=== PATIENT | male | born 1950 | race Caucasian/White ===

== ENCOUNTER 2021-04-25 16:01 | Inpatient (IN) | payer MEDICARE, OTHER ==
[~2021-04-25] VITALS: Ht 182.9 cm; Wt 102.3 kg
--- NOTE | 2021-04-25 16:13 | NUR ---
PT BIBA. PER EMS PT WAS COVID + 2 WEEKS AGO, TODAY PT STARTED FEELING INCREASE IN SOB AND COUGH. WHEN EMS ARRIVED PT WAS 82% ON RA. PT CURRENTLY ON 15L NRB AT 89-90%. PT ALSO HAD A FEVER OF 102F ORALLY FOR EMS. PT CURRENTLY 100.1F ORALLY. EMS GAVE 100ML OF NS. EMS ALSO REPORTS THAT PT HAS BEEN HYPOTENSIVE 100S/40S. PT CURRENTLY 90/55. PER PT HX OF AFIB AND ASTHMA. PT RESTING IN GURNEY, EKG DONE, MONITORING IN PLACE, RT AT BEDSIDE FOR EVAL, WCTM.
[2021-04-25] MEDS ORDERED: DEXAMETHASONE 4 MG/ML, 5ML ONE (16:38)
[2021-04-25] MEDS ORDERED: PLEASE ENTER ALLERGIES MC SCH (17:00)
[2021-04-25] MEDS ORDERED: SODIUM CHLORIDE FLUSH 10ML SYR IVF ONE (17:00)
[2021-04-25] MEDS ORDERED: ALBUTEROL HFA 90 MCG/SPRAY INH ONE (17:00)
[2021-04-25] MEDS ORDERED: DEXAMETHASONE 4 MG/ML, 1ML IVPush ONE (17:00)
[2021-04-25] MEDS ORDERED: SODIUM CHLORIDE 0.9% 1,000ML IVBOLUS ONE (17:00)
[2021-04-25 17:05] LABS: BASOPHILS % (AUTO) 0 % (0-1); EOSINOPHILS % (AUTO) 0 % (1-7); LYMPHOCYTES % (AUTO) 6 % (22-44); MEAN CORPUSCULAR HEMOGLOBIN 30.5 pg (27.5-34.5); MEAN CORPUSCULAR HGB CONC 33.9 g/dL (33.2-36.2); MEAN PLATELET VOLUME 10.2 fL (7.4-10.4); MONOCYTES % (AUTO) 15 % (2-9); NEUTROPHILS % (AUTO) 79 % (42-75); PLATELET COUNT 207 x10^3/uL (130-400); RED BLOOD COUNT 4.87 x10^6/uL (4.38-5.82); RED CELL DISTRIBUTION WIDTH 14.1 % (9.4-14.8)
[2021-04-25 17:15] LABS: ALBUMIN 2.3 g/dL (3.4-5.0); ANION GAP 9 mmol/L (5-15); CALCIUM 8.7 mg/dL (8.5-10.1); CHLORIDE 98 mmol/L (98-107); CREATININE 1.21 mg/dL (0.7-1.3)
[2021-04-25 17:18] LABS: TROPONIN I < 0.015 ng/mL (0.000-0.045)
[2021-04-25] MEDS ORDERED: AZITHROMYCIN 500 MG in SODIUM CHLORIDE 0.9% 250 ML IV ONE (17:30)
[2021-04-25] MEDS ORDERED: SODIUM CHLORIDE FLUSH 10ML SYR IVF PRN (18:00)
[2021-04-25] MEDS ORDERED: ALBUTEROL HFA 90 MCG/SPRAY INH PRN (19:00)
[2021-04-25] MEDS ORDERED: TRAZODONE 50MG TABLET PO PRN (19:00)
[2021-04-25] MEDS ORDERED: MELATONIN 5 MG TABLET PO PRN (19:00)
[2021-04-25] MEDS ORDERED: POLYETHYLENE GLYCOL 17 GM PACKET PO PRN (19:00)
[2021-04-25] MEDS ORDERED: ONDANSETRON 2MG/ML, 2ML IVPush PRN (19:00)
[2021-04-25] MEDS ORDERED: PHARMACY INSTRUCTION MC SCH (19:00)
--- NOTE | 2021-04-25 19:05 | NUR ---
FIRST CONTACT WITH PATIENT. PATIENT LYING IN STRETCHER ASKING FOR ASSISTANCE TO USE THE RESTROOM. DENIES SOB AND STATES HE WANTS TO GO HOME. PATIENT PROVIDED WITH A URINAL AND ADVISED HE WILL BE ADMITTED WE ARE JUST WAITING ON A BED ASSIGNMENT. PATIENT DENIES NEEDING ASSISTANCE WITH URINAL. VSS. CALL [facility] IN REACH. WILL CONTINUE TO MONITOR.
[2021-04-25 19:16] LABS: ALANINE AMINOTRANSFERASE 34 U/L (12-78); ALBUMIN 2.1 g/dL (3.4-5.0); ANION GAP 9 mmol/L (5-15); CALCIUM 8.5 mg/dL (8.5-10.1); CHLORIDE 101 mmol/L (98-107); CREATININE 1.14 mg/dL (0.7-1.3)
[2021-04-25 19:18] LABS: ALKALINE PHOSPHATASE 76 U/L (45-117); BILIRUBIN,TOTAL 0.6 mg/dL (0.2-1.0)
--- NOTE | 2021-04-25 19:32 | NUR ---
ATTEMPTED TO CALL REPORT X1. WAS TOLD THE NURSE WILL CALL ME BACK WHEN SHE IS READY.
--- NOTE | 2021-04-25 19:52 | NUR ---
April vail in [facility] - 04/25/21 at 1954 by GENEVIEVE REPORT GIVEN TO KERRIE SMITH.
--- NOTE | 2021-04-25 19:54 | NUR ---
REPORT GIVEN TO ISI RN ROOM [id number].
[2021-04-25] MEDS ORDERED: REMDESIVIR 200 MG in SODIUM CHLORIDE 0.9% 250 ML IVPB ONE (20:00)
[2021-04-25] MEDS: ALBUTEROL HFA 90 MCG/SPRAY INH SCH (21:00)
[2021-04-25 21:13] VITALS: BP 113/62
[2021-04-25] MEDS: CHOLECALCIFEROL 5,000u TAB PO SCH (21:17)
[2021-04-25] MEDS: ASCORBIC ACID 500 MG TABLET PO SCH (21:17)
[2021-04-25] MEDS: ZINC SULFATE 220 MG CAPSULE PO SCH (21:17)
[2021-04-25] MEDS ORDERED: LISI40TA9 PO (22:05)
[2021-04-25] MEDS ORDERED: HYDR50TA6 PO (22:05)
[2021-04-25] MEDS ORDERED: APIX5TAB PO (22:07)
[2021-04-25] MEDS: GUAIFENESIN ER 600 MG TABLET PO SCH (22:26)
[2021-04-25] MEDS: INSULIN LISPRO 100 UNITS/ML, PEN SQ-INSULIN SCH (22:27)
[2021-04-25 23:46] VITALS: BP 113/62
[2021-04-26 01:00] VITALS: BP 109/62
[2021-04-26] MEDS ORDERED: HYDR25TA6 PO (04:42)
[2021-04-26] MEDS: ALBUTEROL HFA 90 MCG/SPRAY INH SCH ×4 (06:00→20:13)
[2021-04-26 06:04] LABS: BASOPHILS % (AUTO) 0 % (0-1); EOSINOPHILS % (AUTO) 0 % (1-7); LYMPHOCYTES % (AUTO) 7 % (22-44); MEAN CORPUSCULAR HEMOGLOBIN 30.4 pg (27.5-34.5); MEAN CORPUSCULAR HGB CONC 33.7 g/dL (33.2-36.2); MEAN PLATELET VOLUME 10.2 fL (7.4-10.4); MONOCYTES % (AUTO) 8 % (2-9); NEUTROPHILS % (AUTO) 85 % (42-75); PLATELET COUNT 218 x10^3/uL (130-400); RED BLOOD COUNT 5.03 x10^6/uL (4.38-5.82); RED CELL DISTRIBUTION WIDTH 14.1 % (9.4-14.8)
[2021-04-26 06:08] LABS: ALANINE AMINOTRANSFERASE 34 U/L (12-78); ALBUMIN 2.2 g/dL (3.4-5.0); ANION GAP 9 mmol/L (5-15); CALCIUM 9.1 mg/dL (8.5-10.1); CHLORIDE 103 mmol/L (98-107); CREATININE 1.11 mg/dL (0.7-1.3)
[2021-04-26 06:11] LABS: ALKALINE PHOSPHATASE 81 U/L (45-117); BILIRUBIN,TOTAL 0.5 mg/dL (0.2-1.0); TOTAL PROTEIN 7.5 g/dL (6.4-8.2)
[2021-04-26 07:59] VITALS: BP 110/65
[2021-04-26] MEDS: LISINOPRIL 40 MG TABLET PO SCH (08:02)
[2021-04-26] MEDS: INSULIN LISPRO 100 UNITS/ML, PEN SQ-INSULIN SCH ×4 (08:02→20:41)
[2021-04-26] MEDS: CHOLECALCIFEROL 5,000u TAB PO SCH (08:02)
[2021-04-26] MEDS: SENNA/DOCUSATE TABLET PO SCH (08:03)
[2021-04-26] MEDS: HYDROCHLOROTHIAZIDE 25 MG TABLET PO SCH (08:03)
[2021-04-26] MEDS: GUAIFENESIN ER 600 MG TABLET PO SCH ×2 (08:04→20:13)
[2021-04-26] MEDS: ASCORBIC ACID 500 MG TABLET PO SCH ×2 (08:04→16:05)
[2021-04-26] MEDS: APIXABAN 5 MG TABLET PO SCH ×2 (08:04→20:13)
[2021-04-26] MEDS: DEXAMETHASONE 4 MG/ML, 1ML IVPush SCH (08:05)
[2021-04-26] MEDS: ZINC SULFATE 220 MG CAPSULE PO SCH (08:05)
[2021-04-26] MEDS ORDERED: OMNIPAQUE 350 MG/ML, 100ML BOTTLE ONE (13:04)
[2021-04-26 16:01] VITALS: BP 111/58
[2021-04-26] MEDS: REMDESIVIR 100 MG in SODIUM CHLORIDE 0.9% 250 ML IVPB SCH (20:09)
[2021-04-26 20:21] VITALS: BP 124/65
[2021-04-26] MEDS: CEFTRIAXONE 1,000 MG in DEXTROSE 5% 50 ML IVPB SCH (22:46)
[2021-04-26] MEDS: ACETAMINOPHEN 325 MG TABLET PO PRN (22:50)
[2021-04-26] MEDS: AZITHROMYCIN 500 MG in SODIUM CHLORIDE 0.9% 250 ML IV SCH (23:40)
[2021-04-27 00:45] VITALS: BP 124/70
[2021-04-27 05:15] LABS: MEAN CORPUSCULAR HEMOGLOBIN 29.9 pg (27.5-34.5); MEAN PLATELET VOLUME 10.3 fL (7.4-10.4); PLATELET COUNT 269 x10^3/uL (130-400); RED BLOOD COUNT 4.76 x10^6/uL (4.38-5.82); RED CELL DISTRIBUTION WIDTH 14.3 % (9.4-14.8)
[2021-04-27 05:19] LABS: HCT (SEDRATE) 43.5 % (39.2-51.8)
[2021-04-27 05:37] LABS: ALANINE AMINOTRANSFERASE 36 U/L (12-78); ALBUMIN 2.1 g/dL (3.4-5.0); ANION GAP 6 mmol/L (5-15); CALCIUM 9.4 mg/dL (8.5-10.1); CHLORIDE 107 mmol/L (98-107); CREATININE 1.06 mg/dL (0.7-1.3)
[2021-04-27 05:51] LABS: ALKALINE PHOSPHATASE 73 U/L (45-117); BILIRUBIN,TOTAL 0.4 mg/dL (0.2-1.0); TOTAL PROTEIN 7.1 g/dL (6.4-8.2)
[2021-04-27] MEDS: ALBUTEROL HFA 90 MCG/SPRAY INH SCH ×4 (05:53→20:27)
[2021-04-27 05:58] LABS: BAND#(MANUAL) 9.33 x10^3/uL; BANDS%(MANUAL) 51 % (0-7); LYMPH#(MANUAL) 0.73 x10^3/uL (1-3.4); LYMPHS% (MANUAL) 4 % (22-44); METAMYELOCYTES# (MANUAL) 2.01 x10^3/uL (0-0); METAMYELOCYTES% (MANUAL) 11 % (0-1); MONOS% (MANUAL) 12 % (2-9); SEG#(MANUAL) 4.03 x10^3/uL (1.8-6.8); SEGS% (MANUAL) 22 % (42-75)
[2021-04-27 06:05] LABS: <PLATELET ESTIMATE> ADEQUATE
[2021-04-27 06:06] LABS: LARGE PLATELETS 1+
[2021-04-27 06:07] LABS: <RBC MORPHOLOGY> NORMAL
[2021-04-27] MEDS: INSULIN LISPRO 100 UNITS/ML, PEN SQ-INSULIN SCH ×4 (08:36→21:38)
[2021-04-27] MEDS: DEXAMETHASONE 4 MG/ML, 1ML IVPush SCH (08:36)
[2021-04-27] MEDS: CHOLECALCIFEROL 5,000u TAB PO SCH (08:39)
[2021-04-27] MEDS: LISINOPRIL 40 MG TABLET PO SCH (08:39)
[2021-04-27] MEDS: SENNA/DOCUSATE TABLET PO SCH (08:39)
[2021-04-27] MEDS: ZINC SULFATE 220 MG CAPSULE PO SCH (08:39)
[2021-04-27] MEDS: ASCORBIC ACID 500 MG TABLET PO SCH ×2 (08:39→16:28)
[2021-04-27] MEDS: HYDROCHLOROTHIAZIDE 25 MG TABLET PO SCH (08:39)
[2021-04-27] MEDS: APIXABAN 5 MG TABLET PO SCH ×2 (08:39→21:38)
[2021-04-27] MEDS: GUAIFENESIN ER 600 MG TABLET PO SCH ×2 (08:39→21:38)
[2021-04-27 08:40] VITALS: BP 113/64
[2021-04-27 13:38] VITALS: BP 119/71
[2021-04-27 19:53] VITALS: BP 125/66
[2021-04-27] MEDS: REMDESIVIR 100 MG in SODIUM CHLORIDE 0.9% 250 ML IVPB SCH (20:27)
[2021-04-27] MEDS: ACETAMINOPHEN 325 MG TABLET PO PRN (21:38)
[2021-04-27] MEDS: CEFTRIAXONE 1,000 MG in DEXTROSE 5% 50 ML IVPB SCH (22:50)
[2021-04-27] MEDS: AZITHROMYCIN 500 MG in SODIUM CHLORIDE 0.9% 250 ML IV SCH (23:24)
[2021-04-28 01:41] VITALS: BP 124/75
[2021-04-28 05:35] LABS: MEAN CORPUSCULAR HEMOGLOBIN 29.8 pg (27.5-34.5); MEAN CORPUSCULAR HGB CONC 32.8 g/dL (33.2-36.2); MEAN PLATELET VOLUME 10.6 fL (7.4-10.4); PLATELET COUNT 304 x10^3/uL (130-400)
[2021-04-28 05:41] LABS: CHLORIDE 108 mmol/L (98-107)
[2021-04-28] MEDS: ALBUTEROL HFA 90 MCG/SPRAY INH SCH ×4 (05:50→20:12)
[2021-04-28 05:51] LABS: ALANINE AMINOTRANSFERASE 39 U/L (12-78); ALBUMIN 2.2 g/dL (3.4-5.0); ALKALINE PHOSPHATASE 66 U/L (45-117); ANION GAP 7 mmol/L (5-15); BILIRUBIN,TOTAL 0.2 mg/dL (0.2-1.0); CALCIUM 9.3 mg/dL (8.5-10.1); CREATININE 0.99 mg/dL (0.7-1.3); TOTAL PROTEIN 6.9 g/dL (6.4-8.2)
[2021-04-28 06:00] LABS: BAND#(MANUAL) 8.85 x10^3/uL; BANDS%(MANUAL) 53 % (0-7); LYMPH#(MANUAL) 1.17 x10^3/uL (1-3.4); LYMPHS% (MANUAL) 7 % (22-44); METAMYELOCYTES# (MANUAL) 0.17 x10^3/uL (0-0); METAMYELOCYTES% (MANUAL) 1 % (0-1); MONOS#(MANUAL) 1.34 x10^3/uL (0.3-2.7); MONOS% (MANUAL) 8 % (2-9); SEG#(MANUAL) 5.18 x10^3/uL (1.8-6.8); SEGS% (MANUAL) 31 % (42-75)
[2021-04-28 06:01] LABS: <PLATELET ESTIMATE> ADEQUATE; <RBC MORPHOLOGY> NORMAL; LARGE PLATELETS 1+
[2021-04-28] MEDS: INSULIN LISPRO 100 UNITS/ML, PEN SQ-INSULIN SCH ×4 (07:50→20:23)
[2021-04-28] MEDS: LISINOPRIL 40 MG TABLET PO SCH (07:50)
[2021-04-28] MEDS: HYDROCHLOROTHIAZIDE 25 MG TABLET PO SCH (07:51)
[2021-04-28] MEDS: GUAIFENESIN ER 600 MG TABLET PO SCH ×2 (07:51→20:11)
[2021-04-28] MEDS: SENNA/DOCUSATE TABLET PO SCH (07:51)
[2021-04-28] MEDS: CHOLECALCIFEROL 5,000u TAB PO SCH (07:51)
[2021-04-28] MEDS: ASCORBIC ACID 500 MG TABLET PO SCH ×2 (07:51→16:03)
[2021-04-28] MEDS: DEXAMETHASONE 4 MG/ML, 1ML IVPush SCH (07:51)
[2021-04-28] MEDS: ZINC SULFATE 220 MG CAPSULE PO SCH (07:52)
[2021-04-28] MEDS: APIXABAN 5 MG TABLET PO SCH ×2 (08:05→20:11)
[2021-04-28 08:56] VITALS: BP 117/66
[2021-04-28 12:59] VITALS: BP 124/66
[2021-04-28 19:58] VITALS: BP 127/65
[2021-04-28] MEDS: REMDESIVIR 100 MG in SODIUM CHLORIDE 0.9% 250 ML IVPB SCH (20:11)
[2021-04-28] MEDS: CEFTRIAXONE 1,000 MG in DEXTROSE 5% 50 ML IVPB SCH (22:27)
[2021-04-28] MEDS: ACETAMINOPHEN 325 MG TABLET PO PRN (22:35)
[2021-04-28] MEDS: AZITHROMYCIN 500 MG in SODIUM CHLORIDE 0.9% 250 ML IV SCH (23:23)
[2021-04-29 01:02] VITALS: BP 127/70
[2021-04-29 05:52] LABS: MEAN CORPUSCULAR HEMOGLOBIN 29.9 pg (27.5-34.5); MEAN CORPUSCULAR HGB CONC 33.2 g/dL (33.2-36.2); MEAN PLATELET VOLUME 9.9 fL (7.4-10.4); PLATELET COUNT 294 x10^3/uL (130-400); RED BLOOD COUNT 4.54 x10^6/uL (4.38-5.82); RED CELL DISTRIBUTION WIDTH 14.2 % (9.4-14.8)
[2021-04-29] MEDS: ALBUTEROL HFA 90 MCG/SPRAY INH SCH ×3 (05:58→16:25)
[2021-04-29 06:04] LABS: CHLORIDE 110 mmol/L (98-107)
[2021-04-29 06:25] LABS: ALANINE AMINOTRANSFERASE 46 U/L (12-78); ALBUMIN 2.1 g/dL (3.4-5.0); ALKALINE PHOSPHATASE 62 U/L (45-117); ANION GAP 4 mmol/L (5-15); BILIRUBIN,TOTAL 0.5 mg/dL (0.2-1.0); CALCIUM 9.1 mg/dL (8.5-10.1); CREATININE 0.87 mg/dL (0.7-1.3); TOTAL PROTEIN 6.5 g/dL (6.4-8.2)
[2021-04-29 06:28] LABS: BANDS%(MANUAL) 28 % (0-7); LYMPH#(MANUAL) 0.59 x10^3/uL (1-3.4); LYMPHS% (MANUAL) 5 % (22-44); METAMYELOCYTES# (MANUAL) 0.24 x10^3/uL (0-0); METAMYELOCYTES% (MANUAL) 2 % (0-1); MONOS#(MANUAL) 1.42 x10^3/uL (0.3-2.7); MONOS% (MANUAL) 12 % (2-9); SEG#(MANUAL) 6.25 x10^3/uL (1.8-6.8); SEGS% (MANUAL) 53 % (42-75)
[2021-04-29 06:31] LABS: <RBC MORPHOLOGY> NORMAL
[2021-04-29 06:32] LABS: <PLATELET ESTIMATE> ADEQUATE; <PLT MORPHOLOGY> NORMAL PLT MORPH
[2021-04-29 06:34] LABS: PELGER-HUET CELLS 1+
[2021-04-29 07:30] VITALS: BP 117/66
[2021-04-29] MEDS: DEXAMETHASONE 4 MG/ML, 1ML IVPush SCH (07:33)
[2021-04-29] MEDS: INSULIN LISPRO 100 UNITS/ML, PEN SQ-INSULIN SCH ×3 (07:33→16:26)
[2021-04-29] MEDS: GUAIFENESIN ER 600 MG TABLET PO SCH (07:33)
[2021-04-29] MEDS: ZINC SULFATE 220 MG CAPSULE PO SCH (07:34)
[2021-04-29] MEDS: ASCORBIC ACID 500 MG TABLET PO SCH ×2 (07:34→17:52)
[2021-04-29] MEDS: APIXABAN 5 MG TABLET PO SCH (07:34)
[2021-04-29] MEDS: SENNA/DOCUSATE TABLET PO SCH (07:34)
[2021-04-29] MEDS: LISINOPRIL 40 MG TABLET PO SCH (07:34)
[2021-04-29] MEDS: HYDROCHLOROTHIAZIDE 25 MG TABLET PO SCH (07:34)
[2021-04-29] MEDS: CHOLECALCIFEROL 5,000u TAB PO SCH (07:34)
[2021-04-29 14:58] VITALS: BP 122/60
[2021-04-29 20:04] VITALS: BP 126/64
== END 2021-04-29 20:30 | disposition home or self-care (01) | DRG 177 ==
LOC: ED 17:30 → SUATTDRO 17:57 → EDIP 18:19 → 3N 20:32
PROVIDERS: ADMIT Internal Medicine; ATTEND Family Medicine
PROC: XW033E5 Introduction of Remdesivir Anti-infective into Peripheral Vein, Percutaneous Approach, New Technology Group 5 (ICD-10-PCS; principal; 2021-04-25)
PROC: 3E0F7SF Introduction of Other Gas into Respiratory Tract, Via Natural or Artificial Opening (ICD-10-PCS; 2021-04-25)
DX: U07.1 COVID-19 (principal); J12.82 Pneumonia due to coronavirus disease 2019; J96.01 Acute respiratory failure with hypoxia; D68.69 Other thrombophilia; I48.20 Chronic atrial fibrillation, unspecified; E66.9 Obesity, unspecified; R73.03 Prediabetes; R73.9 Hyperglycemia, unspecified; I10 Essential (primary) hypertension; J31.0 Chronic rhinitis; Z68.31 Body mass index [BMI] 31.0-31.9, adult; Z79.01 Long term (current) use of anticoagulants; Z79.899 Other long term (current) drug therapy
CPT/HCPCS: 36415; 71045; 71275; 80048; 80053; 82040; 82962; 83036; 83615; 83735; 84100; 84145; 84484; 85025; 85379; 85651; 86140; 93005; 96374; 96375; G0378; J0456; J0696; J1100; Q9967; J1815; J7030; J7050